=== PATIENT | female | born 1995 | race American Indian/Alaskan Native ===

== ENCOUNTER 2017-11-05 16:39 | Emergency (ER) | payer MEDICAID, OTHER ==
--- NOTE | 2017-11-05 17:39 | EDPHY ---
H & P Stated Complaint: Thumb injury at work HPI/ROS: Chief complaint: Left thumb injury History of present illness: This is a 22-year-old female who presents to the emergency department for left thumb injury. Last night at work she was clearing some dishes when she hyperextended her thumb. Since then she has had pain. Pain does radiate up into the arm. It is worse with movement, better with rest. She denies other associated signs or symptoms including no open wounds, no abnormal coolness to the thumb, no paresthesias. No other injuries reported. - Personal History LMP (Females 10-55): 8-14 Days Ago Current Tetanus/Diphtheria Vaccine: Yes Current Tetanus Diphtheria and Acellular Pertussis (TDAP): Yes Tetanus Vaccine Date: 11/15/2014 - Medical/Surgical History Hx Asthma: Yes Hx Chronic Respiratory Disease: No Hx Diabetes: No Hx Cardiac Disease: No Hx Renal Disease: No Hx Cirrhosis: No Hx Alcoholism: No Hx HIV/AIDS: No Hx Splenectomy or Spleen Trauma: No Other PMH: medical- asthma, depression, anxiety, bipolar, MS - Social History Smoking Status: Former smoker - Physical Exam Exam: General: Alert, nontoxic Skin: No lesions consistent with trauma Musculoskeletal: Left thumb in the rest of the hand is nontender. He can move the thumb in the PIP and MCP joint in all henao well. However, there is discomfort with extending thumb. The other digits and the rest of the hand is unremarkable. Vascular: Radial pulses 2+. Capillary refill brisk in all digits of the left hand. Neurologic: Sensation intact in the left hand. Constitutional: Initial Vital Signs Temperature (C) 36.8 C 11/05/17 16:40 Heart Rate 89 11/05/17 16:40 Respiratory Rate 16 11/05/17 16:40 Blood Pressure 140/79 H 11/05/17 16:40 O2 Sat (%) 97 11/05/17 16:40 O2 Delivery Mode Room Air Allergies/Adverse Reactions: cats dogs Allergy (Uncoded 06/21/16 16:12) Home Medications: Medication Instructions Recorded Baclofen 06/21/16 Gilenya 06/21/16 Medical Decision Making - Diagnostics Imaging Results: Imaging Impressions Hand X-Ray 11/05/17 17:08 Impression: Negative for definite fracture. If symptoms persist following conservative management, follow-up radiography is recommended in 7-10 days., Imaging: I viewed and interpreted images myself Procedures: Procedure: Splint placement. A Velcro thumb spica splint was applied. After application of the splint I returned and re-examined the patient. The splint was adequately immobilizing the joint and distal to the splint the patient's circulation and sensation was intact. ED Course/Re-evaluation: Patient seen under the supervision of my secondary supervising physician Dr. Aram Murphy. Patient presents to the emergency department for a left thumb injury. The finger is neurovascularly intact. X-rays negative. She is placed in a Velcro thumb spica splint for rest and comfort. She is discharged home to follow up with worker's compensation or hand doctor. Return precautions are given. Patient voiced understanding and agreement with plan. Differential Diagnosis: Included but not limited to contusion, sprain, strain, bony fracture, joint dislocation - Data Points Medications Given: Discontinued Medications Ibuprofen (Motrin) 600 mg PO EDNOW ONE Stop: 11/05/17 17:56 Last Admin: 11/05/17 18:00 Dose: 600 mg Departure - Departure Disposition: Home, Routine, Self-Care Clinical Impression: Thumb sprain Qualifiers: Encounter type: initial encounter Sprain of finger site: unspecified site Laterality: left Qualified Code(s): S63.602A - Unspecified sprain of left thumb , initial encounter Condition: Good Instructions: Finger Sprain (ED) Additional Instructions: Follow-up with worker's compensation or a hand doctor for recheck Use splint to allow the injury to heal Use ibuprofen 600 mg 3 times a day for the next 2-3 days for symptom control If symptoms worsen or new symptoms develop return to the emergency room for recheck Referrals: NONE *PRIMARY CARE P,. [Primary Care Provider] - As per Instructions Bridger Sauceda MD [Medical Doctor] - As per Instructions
[2017-11-05] MEDS ORDERED: IBUPROFEN 600 MG TAB PO ONE (17:55)
[2017-11-05 18:04] VITALS: BP 122/68; PULSE 72; RESP 18; TEMP 97.9; O2SAT 95
== END 2017-11-05 18:07 | disposition home or self-care (01) ==
DX: S63.602A Unspecified sprain of left thumb, initial encounter (principal); J45.909 Unspecified asthma, uncomplicated; Z87.891 Personal history of nicotine dependence; X50.9XXA Other and unspecified overexertion or strenuous movements or postures, initial encounter; Y93.89 Activity, other specified